=== PATIENT | male | born 1940 | race Caucasian/White ===

== ENCOUNTER 2018-12-17 09:20 | Emergency (ER) | payer MEDICARE ==
[~2018-12-17] VITALS: Ht 172.7 cm; Wt 71.6 kg
--- NOTE | 2018-12-17 09:45 | NUR ---
PT C/O RIGHT FOOT LESION THAT BLEEDS AT TIMES AND WAS SEEN AT [facility] ONE WEEK AGO FOR SAME AND ADMITTED FOR ONE DAY FOR A-FIB RVR. PT LEFT THE NEXT DAY AND TODAY IS IN A-FIB RVR AT 140-180. PT DENIES ANY CP OR SOB. PT ON MONITOR. CHART UP FOR .
[2018-12-17] MEDS ORDERED: DILTIAZEM 5 MG/ML, 5ML ONE (09:56)
[2018-12-17] MEDS ORDERED: OXYcodone/APAP 5/325MG TABLET ONE (09:58)
[2018-12-17 10:12] LABS: ALANINE AMINOTRANSFERASE 36 U/L (12-78); ALBUMIN 3.9 g/dL (3.4-5.0); ANION GAP 8 mmol/L (5-15); CALCIUM 8.8 mg/dL (8.5-10.1); CHLORIDE 108 mmol/L (98-107)
[2018-12-17 10:17] LABS: ALKALINE PHOSPHATASE 71 U/L (45-117); BILIRUBIN,TOTAL 1.5 mg/dL (0.2-1.0); CREATININE 1.05 mg/dL (0.7-1.3); TOTAL PROTEIN 7.7 g/dL (6.4-8.2); TROPONIN I < 0.015 ng/mL (0.000-0.045)
[2018-12-17] MEDS ORDERED: HEPARIN 5,000 UNITS/ML, 1ML IV ONE (10:30)
[2018-12-17] MEDS ORDERED: SODIUM CHLORIDE FLUSH 10ML SYR IVF ONE (10:30)
[2018-12-17] MEDS ORDERED: OXYcodone/APAP 5/325MG TABLET PO ONE (10:30)
[2018-12-17] MEDS ORDERED: HEPARIN 25,000 UNITS/500ML PMX 500 ML IV PRN (10:30)
[2018-12-17] MEDS ORDERED: SODIUM CHLORIDE 0.9% 1,000ML IVBOLUS ONE (10:30)
[2018-12-17] MEDS ORDERED: HEPARIN 5,000 UNITS/ML, 1ML IV PRN (10:30)
[2018-12-17] MEDS ORDERED: DILTIAZEM 5 MG/ML, 5ML IVPush ONE (10:30)
[2018-12-17 10:32] LABS: MD YES; MEAN CORPUSCULAR HEMOGLOBIN 32.2 pg (27.5-34.5); MEAN CORPUSCULAR HGB CONC 33.7 g/dL (33.2-36.2); MEAN CORPUSCULAR VOLUME 95.5 fL (81-97); MEAN PLATELET VOLUME 9.6 fL (7.4-10.4); PLATELET COUNT 627 x10^3/uL (130-400); RED BLOOD COUNT 4.33 x10^6/uL (4.38-5.82)
[2018-12-17] MEDS ORDERED: HEPARIN 5,000 UNITS/ML, 1ML ONE (10:35)
[2018-12-17] MEDS ORDERED: HEPARIN 25,000 UNITS/500ML PMX 500 ML ONE (10:35)
[2018-12-17 10:37] LABS: <PLATELET ESTIMATE> INCREASED; ANISOCYTOSIS 1+; BASOS#(MANUAL) 0.11 x10^3/uL (0-0.1); BASOS% (MANUAL) 2 % (0-1); EOS#(MANUAL) 0.11 x10^3/uL (0.0-0.4); EOS% (MANUAL) 2 % (1-7); LARGE PLATELETS 1+; LYMPH#(MANUAL) 0.59 x10^3/uL (1-3.4); LYMPHS% (MANUAL) 11 % (22-44); MONOS#(MANUAL) 0.49 x10^3/uL (0.3-2.7); MONOS% (MANUAL) 9 % (2-9); SEGS% (MANUAL) 76 % (42-75)
[2018-12-17 10:38] LABS: GIANT PLATELETS 1+
--- NOTE | 2018-12-17 10:55 | NUR ---
HEPARIN STARTED PER PROTOCOL. PT DENIES CP OR SOB.
--- NOTE | 2018-12-17 11:38 | NUR ---
PT BEING DISCHARGED PER CARDILOGY AND GIVEN XARELTO AND DILTIAZEM TO START AT HOME.
[2018-12-17 11:44] VITALS: BP 104/67
--- NOTE | 2018-12-17 11:46 | NUR ---
TASK RN: PER VERBAL INST FROM DR. ALANIZ. LEFT ANKLY WOUND WRAPPED WITH XEROFORM GAUZE AND KERLEX. PT GIVEN WOUND CARE REFERRAL. Patient/Caregiver given discharge instructions and they have confirmed that they understand the instructions. Patient ambulatory with steady gait.
--- NOTE | 2018-12-17 12:57 | NUR ---
POSSIBLE GLASSES TAKEN TO SECURITY. Addendum: 12/17/18 at 1300 by ALECESAR LEFT MESSAGE FOR PT ON HOME PHONE IF HE ELFT HIS EYE GLASSES.
== END 2018-12-17 11:47 | disposition home or self-care (01) ==
LOC: ED 10:33
DX: I48.91 Unspecified atrial fibrillation (principal); R23.4 Changes in skin texture
CPT/HCPCS: 36415; 71045; 80053; 83605; 84484; 85025; 85379; 85520; 93005; 96365; 96375; 96376; 99284; J1644

== ENCOUNTER 2018-12-20 10:26 | Outpatient (CLI) | payer MEDICARE | END 2018-12-20 23:59 | disposition home or self-care (01) | LOC: WOUND 10:26 | PROVIDERS: ATTEND Internal Medicine | DX: I87.313 Chronic venous hypertension (idiopathic) with ulcer of bilateral lower extremity (principal); L97.212 Non-pressure chronic ulcer of right calf with fat layer exposed; L97.311 Non-pressure chronic ulcer of right ankle limited to breakdown of skin; L97.821 Non-pressure chronic ulcer of other part of left lower leg limited to breakdown of skin; I48.91 Unspecified atrial fibrillation; Z87.891 Personal history of nicotine dependence | CPT/HCPCS: 97597; 97598; G0463 ==

== ENCOUNTER 2018-12-25 08:43 | Outpatient (CLI) | payer MEDICARE | END 2018-12-25 23:59 | disposition home or self-care (01) | LOC: WOUND 08:43 | PROVIDERS: ATTEND Internal Medicine | DX: I87.312 Chronic venous hypertension (idiopathic) with ulcer of left lower extremity (principal); L97.822 Non-pressure chronic ulcer of other part of left lower leg with fat layer exposed; I87.331 Chronic venous hypertension (idiopathic) with ulcer and inflammation of right lower extremity; L97.811 Non-pressure chronic ulcer of other part of right lower leg limited to breakdown of skin; I48.91 Unspecified atrial fibrillation; Z87.891 Personal history of nicotine dependence | CPT/HCPCS: 97597 ==

== ENCOUNTER → 2019-01-08 | Outpatient (CLI) | payer MEDICARE | END | disposition home or self-care (01) | LOC: WOUND 09:27 | PROVIDERS: ATTEND Internal Medicine | DX: I87.312 Chronic venous hypertension (idiopathic) with ulcer of left lower extremity (principal); L97.521 Non-pressure chronic ulcer of other part of left foot limited to breakdown of skin; I87.331 Chronic venous hypertension (idiopathic) with ulcer and inflammation of right lower extremity; L97.318 Non-pressure chronic ulcer of right ankle with other specified severity; I48.91 Unspecified atrial fibrillation; Z87.891 Personal history of nicotine dependence | CPT/HCPCS: 97597 ==

== ENCOUNTER 2019-01-12 09:24 | Outpatient (CLI) | payer MEDICARE ==
[2019-01-21] MEDS ORDERED: POTA20TA89 PO (14:14)
[2019-01-21] MEDS ORDERED: FURO40TA6 PO (14:14)
[2019-01-21] MEDS ORDERED: DILT300C42 PO (14:14)
== END 2019-01-12 23:59 | disposition home or self-care (01) ==
LOC: CFH 09:24
PROVIDERS: ATTEND Internal Medicine Cardiovascular Disease
DX: I08.1 Rheumatic disorders of both mitral and tricuspid valves (principal); I48.91 Unspecified atrial fibrillation
CPT/HCPCS: 93306